=== PATIENT | female | born 1955 | race Caucasian/White ===

== ENCOUNTER 2017-01-17 07:20 | Day surgery (SDC) | payer OTHER ==
[~2017-01-17] VITALS: Ht 167.6 cm; Wt 46.8 kg
[2017-01-17 07:34] VITALS: BP 142/81; PULSE 74; RESP 20; TEMP 98.5; O2SAT 95
[2017-01-17] MEDS ORDERED: CYCL1TAB29 PO (07:53)
[2017-01-17] MEDS ORDERED: IBUP400T20 PO (07:53)
[2017-01-17] MEDS ORDERED: SYMB80AE INH (07:53)
[2017-01-17] MEDS ORDERED: HYDR-3516 PO (07:53)
[2017-01-17] MEDS ORDERED: VENL37.5 PO (07:53)
[2017-01-17] MEDS ORDERED: VENTAER INH (07:53)
[2017-01-17] MEDS ORDERED: CHLORHEXIDINE GLUCONATE 2 % 1 PACK (2 CLOTHS) TOPICAL SCH (08:00)
[2017-01-17] MEDS ORDERED: VANCOMYCIN 1000 MG/NS 250 ML - implanted port/tunneled catheter IV SCH ×2 (08:00)
[2017-01-17] MEDS ORDERED: SODIUM CHLORIDE 0.9% 1000 ML IV SCH (08:00)
[2017-01-17] MEDS ORDERED: POVIDONE IODINE 5% (ANTISEPSIS KIT) 4 APPLICATIONS EACH NARE SCH (08:00)
[2017-01-17] MEDS ORDERED: MIDAZOLAM HCL 2 MG/2 ML VIAL ONE (09:23)
[2017-01-17 10:35] VITALS: BP 132/84; PULSE 84; RESP 18; TEMP 97.6; O2SAT 93
--- NOTE | 2017-01-17 10:37 | PD.RAD ---
Post Procedure Progress Note Pre Procedure Diagnosis: (1) Lung cancer Post Procedure Diagnosis: (1) Lung cancer Procedure Date: Jan 17, 2017 Supervising Radiologist: Rivera Ware Proceduralist/Assist: Aayush Neil, RT(R), RT Sinan(R) Anesthesia: Local, Analgesia, Conscious Sedation Plan of Activity Patient to Unit: ROPU See PACS Report for procedural detail/treatment Central Venous Access Device Procedure 1 Right Internal Jugular Infusaport Placement single lumen Maltese: 8 Rivera Ware MD Jan 17, 2017 10:37
[2017-01-17] MEDS ORDERED: SODIUM CHLORIDE 0.9% FLUSH 10 ML FLUSH IVF PRN (10:45)
[2017-01-17 10:50] VITALS: BP 122/79; PULSE 75; RESP 18; O2SAT 95
[2017-01-17 11:20] VITALS: BP 135/81; PULSE 79; RESP 18; O2SAT 94
--- NOTE | 2017-01-17 11:36 | RADRPT ---
EXAM DATE/TIME: 01/17/2017 09:10 [facility] COMPARISON: No previous studies available for comparison. INDICATIONS : Patient presents with stage IV lung adenocarcinoma in need of port placement. MEDICAL HISTORY : Arthritis Asthma Cancer (Lung) COPD Emphysema Hypotension SURGICAL HISTORY : Carpel Tunnel Surgery Colonoscopy Hip surgery Left Sigmoidoscopy in 2017 Removal of tumor left leg in 2017 ENCOUNTER: Initial ACUITY: 2 months PAIN SCORE: 7/10 LOCATION: Left Hip FLUORO TIME: 0.8 minutes IMAGE SERIES: 1 SEDATION TIME: 30 minutes ACCESS: Right internal jugular vein SEDATION: 1.) 3.5 mg midazolam (Versed) IV 2.) 175 mcg fentanyl (Sublimaze) IV Prophylactic antibiotics were administered with appropriate pre-procedure timing. Vancomycin within 2 hours of procedure, Ancef (or alternative) within 1 hour of procedure. DEVICE: 1. 8 [place] single lumen Ugvmis-l-aife PROCEDURE : 1. Continuous pulse oximetry and EKG monitoring. 2. Intravenous conscious sedation. 3. Ultrasound guidance for venous access. 4. Fluoroscopic guided implantable central venous port placement. The patient was placed supine. The neck was prepped in sterile fashion. Full sterile technique was u sed, including cap, mask, sterile gloves and gown, and a large sterile sheet. Hand hygiene and 2% ch lorhexidine Betadine was utilized per protocol for cutaneous antisepsis with appropriate dry time for site. Sterile gel and sterile probe cover were utilized for ultrasound guidance. The skin and sub cutaneous tissues were infiltrated with local anesthetic solution. Under direct ultrasound guidance, central venous access was accomplished in the targeted vessel. The ultrasound images depicting access guidance were stored and saved to PACS for permanent record. A s ubcutaneous pocket was created using blunt dissection. The port was introduced to the pocket. The c atheter tubing was fed through a subcutaneous tunnel to the venotomy site. The catheter tubing was c ut to a suitable length and then was introduced through a valved Peel-Away sheath and positioned with catheter tubing tip at the cavo-atrial junction level. The pocket incision was closed with subcutic ular Vicryl suture. Steri-Strips were applied. The port was flushed and locked with heparin solutio n per protocol. Sterile dressing was applied to the site. The patient tolerated the procedure well. Conscious sedation was performed with the prescribed dosages and duration as above in the presence of an independent trained radiology nurse to assist in the monitoring of the patient. EKG and oximetry remained stable throughout the procedure. The patient tolerated the procedure well and there were no complications. The patient was sent to post anesthesia recovery in stable condition. CONCLUSION: Uncomplicated ultrasound and fluoroscopic guided implanted central venous port catheter placement as described in detail above. An 8 [place] Power port was placed. Rivera Ware MD on January 17, 2017 at 11:13 Board Certified Radiologist. This report was verified electronically.
[2017-01-17 11:50] VITALS: BP 134/85; PULSE 76; RESP 18; O2SAT 95
== END 2017-01-17 12:43 | disposition home or self-care (01) ==
LOC: HRIP 07:20 → HROP 07:20
PROVIDERS: ATTEND Internal Medicine
DX: Z45.2 Encounter for adjustment and management of vascular access device (principal); C34.90 Malignant neoplasm of unspecified part of unspecified bronchus or lung; J44.9 Chronic obstructive pulmonary disease, unspecified
CPT/HCPCS: 36561; 76937; 77001; 99152; 99153; C1788; J1642; J2250; J3010; J3370; J7030; J7050